=== PATIENT | female | born 1940 | race Caucasian/White ===

== ENCOUNTER 2023-01-12 13:36 | Emergency (ER) | payer MEDICARE, SELFPAY ==
[2023-01-12 14:06] VITALS: BP 158/44; PULSE 71; RESP 12; TEMP 37.3; O2SAT 98
[2023-01-12 14:08] VITALS: BP 158/44; PULSE 71; RESP 12; TEMP 37.3; O2SAT 98
--- NOTE | 2023-01-12 14:25 | ED.FEMALEGU ---
HPI - Female Genitourinary General Chief complaint: Urogenital-Female Stated complaint: pain when urinating Time Seen by Provider: 01/12/23 14:25 Source: patient and RN notes reviewed Mode of arrival: ambulatory Limitations: no limitations History of Present Illness HPI Narrative: 82-year-old female presented for complaints of burning with urination, frequency, urgency over the past month, worsening over the past few days. She denies hematuria, abdominal pain, flank pain, nausea, vomiting, fevers or chills. She is not taking anything [id number] for symptoms. Related Data Home Medications Medication Instructions Recorded Confirmed amiodarone 100 mg tablet mg 01/12/23 apixaban 5 mg tablet (Eliquis) mg 01/12/23 furosemide 40 mg tablet mg 01/12/23 lisinopril 10 mg tablet mg 01/12/23 Allergies Allergy/AdvReac Type Severity Reaction Status Date / Time Sulfa (Sulfonamide Allergy Hives Verified 01/12/23 14:07 Antibiotics) Review of Systems Review of Systems: CONSTITUTIONAL: Denies body aches, fever, chills, or sweats. CARDIOVASCULAR: Denies chest pain, palpitations, or edema. RESPIRATORY: Denies cough or dyspnea. GASTROINTESTINAL: Denies abdominal pain, nausea, vomiting, or diarrhea. GENITOURINARY: Reports dysuria, frequency, urgency, denies hematuria, flank pain SKIN: Denies rash, itching, or wounds. MUSCULOSKELETAL: Denies back pain or myalgia. [facility] Past Medical History Medical History (Updated 01/12/23 @ 14:33 by Nery Esquivel, GLADIS) DVT (deep venous thrombosis) Hypertension Comments At time of signature, I have reviewed and agree with nursing past medical, surgical, social and family history unless otherwise noted. Please see nursing chart for further information. There is no relevant family history pertinent to the presenting complaint Exam Narrative: GENERAL: Well-appearing and in no acute distress. HEAD: Normocephalic EYES: EOMI. . ENT: Mucous membranes pink and moist. NECK: Normal AROM. Supple. CHEST: No respiratory distress. Clear to auscultation. HEART: Regular rate and rhythm. ABDOMEN: Soft, nontender, nondistended, normal active bowel sounds. No CVA tenderness MUSCULOSKELETAL: No bony tenderness. SKIN: Warm, dry, no rash. NEURO: No focal deficits. Alert and oriented x3. Gait steady. PSYCH: Normal affect. Course Course Emergency Course: Patient is aware of diagnosis, understands and agrees to treatment plan. Anticipatory guidance given. Patient agrees to follow-up as directed and is aware of reasons to seek care at the emergency department. Portions of this record may have been created with voice recognition software Level of Care: Express Care Visit Vital Signs Vital signs: Vital Signs Temperature 99.2 F 01/12/23 14:06 Pulse Rate 71 01/12/23 14:06 Respiratory Rate 12 01/12/23 14:06 Blood Pressure 158/44 H 01/12/23 14:06 Pulse Oximetry 98 01/12/23 14:06 Oxygen Delivery Room Air 01/12/23 14:06 Temperature 99.2 F 01/12/23 14:08 Pulse Rate 71 01/12/23 14:08 Respiratory Rate 12 01/12/23 14:08 Blood Pressure 158/44 H 01/12/23 14:08 Pulse Oximetry 98 01/12/23 14:08 Oxygen Delivery Room Air 01/12/23 14:08 Reviewed MDM - Female Genitourinary MDM Narrative Medical decision making narrative: Results of urine reviewed with patient. She states she follows with a guide changer at yearly, but is unsure of the diagnosis. Will send antibiotics and culture the urine. Discussed physical exam findings. Advised supportive measures and signs/symptoms to go to the ER. Pt is appropriate for outpt treatment and f/u. Differential Diagnosis Differential diagnosis: Likely urinary tract infection and cystitis Lab Data Labs: Urine Glucose Negative Reference Range: Negative Urine Glucose Negative
== END 2023-01-12 14:37 | disposition home or self-care (01) ==
PROVIDERS: Emergency Provider Nurse Practitioner Family
DX: N39.0 Urinary tract infection, site not specified (principal); I10 Essential (primary) hypertension; Z86.718 Personal history of other venous thrombosis and embolism
CPT/HCPCS: 81003; 87077; 87086; 87186; 99213; G0463